=== PATIENT | female | born 1985 | race Asian ===

== ENCOUNTER 2019-05-11 15:33 | Emergency (ER) | payer BC ==
[~2019-05-11] VITALS: Ht 160 cm; Wt 56.7 kg
[2019-05-11 17:00] VITALS: Ht 160 cm; Wt 56.7 kg
[2019-05-11 17:17] VITALS: BP 110/55
== END 2019-05-11 17:17 | disposition home or self-care (01) ==
LOC: ED 15:33
DX: Z11.8 Encounter for screening for other infectious and parasitic diseases (principal)